=== PATIENT | female | born 1970 | race Caucasian/White ===

== ENCOUNTER → 2017-01-31 | Outpatient (CLI) | payer OTHER | LOC: HEART 5 08:00 | DX: M79.609 Pain in unspecified limb (principal); I73.9 Peripheral vascular disease, unspecified; R60.9 Edema, unspecified; I10 Essential (primary) hypertension; F17.290 Nicotine dependence, other tobacco product, uncomplicated ==

== ENCOUNTER → 2017-02-17 | Outpatient (CLI) | payer OTHER | LOC: HEART 5 08:30 | DX: R07.9 Chest pain, unspecified (principal) | CPT/HCPCS: 93306 ==

== ENCOUNTER → 2017-04-08 | Outpatient (CLI) | payer OTHER | LOC: HEART 5 14:02 | DX: R06.02 Shortness of breath (principal) | CPT/HCPCS: 94010 ==

== ENCOUNTER → 2017-04-11 | Outpatient (CLI) | payer OTHER | LOC: MAMO 09:53 | DX: Z12.31 Encounter for screening mammogram for malignant neoplasm of breast (principal) | CPT/HCPCS: G0202 ==

== ENCOUNTER → 2017-04-15 | Outpatient (CLI) | payer OTHER | LOC: US 12:20 | DX: N63 Unspecified lump in breast (principal); R92.8 Other abnormal and inconclusive findings on diagnostic imaging of breast | CPT/HCPCS: 76641-LT ==

== ENCOUNTER 2020-12-09 14:10 | Emergency (ER) | payer MEDICARE, OTHER ==
[~2020-12-09 14:10] MED LIST: AUGMENTIN 875-1 EACH PO; CYCLOBENZAPRINE10 MG PO; FIORINAL 50-321 EACH PO; IBUPROFEN600 MG PO; IBUPROFEN800 MG PO; K-DUR TAB 20 M20 MEQ PO; LODINE CAP 300300 MG PO; NAPROSYN500 MG PO; NORFLEX 100 MG100 MG PO; PREDNISONE20 MG PO; PROVENTIL HFA6.7 GM INH; TORADOL 10 MG T10 MG PO; Voltaren Gel 1 % TOP
[2020-12-09 16:45] LABS: RED BLOOD COUNT 4.92 M/UL (4.00-5.10); WHITE BLOOD COUNT 7.7 K/UL (4.5-11.0)
[2020-12-09 17:10] LABS: BUN/CREATININE RATIO 15 (0-10)
== END 2020-12-09 20:49 | disposition home or self-care (01) ==
LOC: ER1 14:10
PROVIDERS: Emergency Medicine
DX: E87.6 Hypokalemia (principal); R19.7 Diarrhea, unspecified; Z20.822 Contact with and (suspected) exposure to COVID-19; F17.200 Nicotine dependence, unspecified, uncomplicated
CPT/HCPCS: 71045; 80053; 81001; 82550; 82553; 83605; 83690; 83874; 84484; 85025; 93005; 96374; 96375; 99284; J2270; J2405; J7030; U0002

== ENCOUNTER → 2021-01-15 | Outpatient (CLI) | payer MEDICARE | LOC: KOH-I 12:07 | DX: Z09 Encounter for follow-up examination after completed treatment for conditions other than malignant neoplasm (principal); Z87.442 Personal history of urinary calculi | CPT/HCPCS: 74018 ==

== ENCOUNTER → 2021-04-16 | Outpatient (CLI) | payer MEDICARE | LOC: KOH-I 15:17 | DX: M51.27 Other intervertebral disc displacement, lumbosacral region (principal) | CPT/HCPCS: 72070 ==

== ENCOUNTER → 2021-06-13 | Outpatient (CLI) | payer MEDICARE ==
[~2021-06-13] MED LIST changes: +BENTYL 20MG TAB20 MG PO; +ZOFRAN4 MG PO
== END ==
LOC: LAB 09:02
DX: M25.50 Pain in unspecified joint (principal); R76.8 Other specified abnormal immunological findings in serum; D89.9 Disorder involving the immune mechanism, unspecified; M19.90 Unspecified osteoarthritis, unspecified site; M85.832 Other specified disorders of bone density and structure, left forearm; M85.831 Other specified disorders of bone density and structure, right forearm
CPT/HCPCS: 36415; 85652; 86140; 86200

== ENCOUNTER 2021-07-14 20:25 | Emergency (ER) | payer MEDICARE ==
[~2021-07-14 20:25] MED LIST changes: -BENTYL 20MG TAB20 MG PO; -ZOFRAN4 MG PO
== END 2021-07-14 21:30 | disposition left against medical advice (07) ==
LOC: ER1 20:25
DX: Z53.21 Procedure and treatment not carried out due to patient leaving prior to being seen by health care provider (principal)

== ENCOUNTER → 2021-07-26 | Outpatient (CLI) | payer MEDICARE ==
[~2021-07-26] MED LIST changes: +BENTYL 20MG TAB20 MG PO; +ZOFRAN4 MG PO
== END ==
LOC: RAD 12:04
DX: N20.0 Calculus of kidney (principal)
CPT/HCPCS: 74018

== ENCOUNTER 2021-07-29 18:14 | Emergency (ER) | payer MEDICARE ==
[~2021-07-29 18:14] MED LIST changes: -BENTYL 20MG TAB20 MG PO; -ZOFRAN4 MG PO
[2021-07-29 19:10] LABS: HEMOGLOBIN 15.2 gm/dl (12.3-15.3); RED BLOOD COUNT 4.96 M/UL (4.00-5.10); WHITE BLOOD COUNT 8.5 K/UL (4.5-11.0)
[2021-07-29 19:28] LABS: BUN/CREATININE RATIO 19 (0-10)
[2021-07-29] MEDS ORDERED: AUGMENTIN 875-1 EACH PO (22:52)
[2021-07-29] MEDS ORDERED: ZOFRAN4 MG PO (22:52)
[2021-07-29] MEDS ORDERED: BENTYL 20MG TAB20 MG PO (22:52)
== END 2021-07-29 23:01 | disposition home or self-care (01) ==
LOC: ER1 18:14
PROVIDERS: Physician Assistant Medical
DX: G43.909 Migraine, unspecified, not intractable, without status migrainosus (principal); R10.9 Unspecified abdominal pain; R11.2 Nausea with vomiting, unspecified; Z90.49 Acquired absence of other specified parts of digestive tract; F17.200 Nicotine dependence, unspecified, uncomplicated; Z79.899 Other long term (current) drug therapy; Z87.442 Personal history of urinary calculi; Z20.822 Contact with and (suspected) exposure to COVID-19
CPT/HCPCS: 71045; 80053; 81001; 82150; 83690; 84484; 85025; 96374; 96375; 99284; C9113; J1200; J1885; J2270; J2405; J2765; J7030; Q9967; U0002

== ENCOUNTER 2021-08-01 15:56 | Emergency (ER) | payer MEDICARE ==
[~2021-08-01 15:56] MED LIST changes: +BENTYL 20MG TAB20 MG PO; +ZOFRAN4 MG PO
[2021-08-01 17:03] LABS: HEMOGLOBIN 14.7 gm/dl (12.3-15.3); RED BLOOD COUNT 4.87 M/UL (4.00-5.10); WHITE BLOOD COUNT 7.7 K/UL (4.5-11.0)
== END 2021-08-01 23:45 | disposition home or self-care (01) ==
LOC: ER1 15:56
PROVIDERS: Physician Assistant Medical
DX: R51.9 Headache, unspecified (principal); R10.84 Generalized abdominal pain; F17.210 Nicotine dependence, cigarettes, uncomplicated
CPT/HCPCS: 36415; 70450; 80053; 81001; 82150; 82550; 82553; 83605; 83690; 83874; 84484; 85025; 96372; 96374; 96375; 99284; J1100; J1200; J1885; J2270; J2405; J2550; J7030

== ENCOUNTER → 2021-08-16 | Outpatient (CLI) | payer MEDICARE, OTHER | LOC: NM 09:39 | DX: R11.0 Nausea (principal); R93.2 Abnormal findings on diagnostic imaging of liver and biliary tract | CPT/HCPCS: 78264; A9541 ==

== ENCOUNTER → 2021-09-20 | Outpatient (CLI) | payer MEDICARE, OTHER, SELFPAY | LOC: RAD 15:29 | DX: R06.00 Dyspnea, unspecified (principal) | CPT/HCPCS: 71046 ==

== ENCOUNTER 2021-10-09 11:23 | Emergency (ER) | payer MEDICARE, OTHER, SELFPAY ==
[2021-10-09 11:55] LABS: RED BLOOD COUNT 4.56 M/UL (4.00-5.10); WHITE BLOOD COUNT 6.7 K/UL (4.5-11.0)
[2021-10-09 12:25] LABS: BUN/CREATININE RATIO 18 (0-10)
[2021-10-09] MEDS ORDERED: MOBIC15 MG PO (16:24)
[2021-10-09] MEDS ORDERED: CYCLOBENZAPRINE5 MG PO (16:24)
== END 2021-10-09 16:30 | disposition home or self-care (01) ==
LOC: ER1 11:23
PROVIDERS: Physician Assistant
DX: R07.89 Other chest pain (principal); E78.5 Hyperlipidemia, unspecified; F17.200 Nicotine dependence, unspecified, uncomplicated; I10 Essential (primary) hypertension; R51.9 Headache, unspecified; R68.83 Chills (without fever); Z20.822 Contact with and (suspected) exposure to COVID-19; K21.9 Gastro-esophageal reflux disease without esophagitis; Z90.710 Acquired absence of both cervix and uterus
CPT/HCPCS: 0240U; 70450; 71045; 80053; 81001; 82550; 82553; 83874; 84484; 85025; 87086; 93005; 96374; 99285; J1885

== ENCOUNTER 2021-10-23 10:52 | Emergency (ER) | payer MEDICARE, OTHER, SELFPAY ==
[~2021-10-23 10:52] MED LIST changes: +CYCLOBENZAPRINE5 MG PO; +MOBIC15 MG PO
[2021-10-23 11:46] LABS: HEMOGLOBIN 13.3 gm/dl (12.3-15.3); RED BLOOD COUNT 4.32 M/UL (4.00-5.10); WHITE BLOOD COUNT 6.8 K/UL (4.5-11.0)
[2021-10-23 12:21] LABS: BUN/CREATININE RATIO 11 (0-10)
== END 2021-10-23 14:35 | disposition home or self-care (01) ==
LOC: ER1 10:52
PROVIDERS: Family Medicine
DX: R07.89 Other chest pain (principal); M54.6 Pain in thoracic spine; G89.29 Other chronic pain; F11.20 Opioid dependence, uncomplicated; R51.9 Headache, unspecified; R42 Dizziness and giddiness; F17.200 Nicotine dependence, unspecified, uncomplicated
CPT/HCPCS: 71045; 80048; 82550; 82553; 83874; 84484; 85025; 85379; 93005; 99285

== ENCOUNTER → 2021-10-24 | Outpatient (CLI) | payer MEDICARE, OTHER, SELFPAY | LOC: CT 08:37 | DX: M47.814 Spondylosis without myelopathy or radiculopathy, thoracic region (principal); M25.78 Osteophyte, vertebrae | CPT/HCPCS: 72130; Q9967 ==

== ENCOUNTER 2021-12-26 21:47 | Emergency (ER) | payer MEDICARE | END 2021-12-26 22:22 | disposition left against medical advice (07) | LOC: ER1 21:47 | DX: Z53.21 Procedure and treatment not carried out due to patient leaving prior to being seen by health care provider (principal) ==

== ENCOUNTER 2021-12-27 20:21 | Emergency (ER) | payer MEDICARE | END 2021-12-28 00:35 | disposition home or self-care (01) | LOC: ER1 20:21 | DX: S30.0XXA Contusion of lower back and pelvis, initial encounter (principal); W19.XXXA Unspecified fall, initial encounter; Y92.009 Unspecified place in unspecified non-institutional (private) residence as the place of occurrence of the external cause; F17.200 Nicotine dependence, unspecified, uncomplicated | CPT/HCPCS: 72100; 96372; 99283; J1885 ==

== ENCOUNTER → 2021-12-31 | Outpatient (CLI) | payer MEDICARE | LOC: KOH-I 10:18 | DX: M47.816 Spondylosis without myelopathy or radiculopathy, lumbar region (principal); M51.34 Other intervertebral disc degeneration, thoracic region | CPT/HCPCS: 72070 ==

== ENCOUNTER 2022-03-18 11:59 | Emergency (ER) | payer MEDICARE ==
[2022-03-18 12:42] LABS: HEMOGLOBIN 12.5 gm/dl (12.3-15.3); RED BLOOD COUNT 4.29 M/UL (4.00-5.10); WHITE BLOOD COUNT 6.9 K/UL (4.5-11.0)
[2022-03-18 13:05] LABS: BUN/CREATININE RATIO 8 (0-10)
[2022-03-18] MEDS ORDERED: PROMETHAZINE12.5 M1 PO (15:07)
== END 2022-03-18 15:15 | disposition home or self-care (01) ==
LOC: ER1 11:59
DX: E78.5 Hyperlipidemia, unspecified (principal); F17.210 Nicotine dependence, cigarettes, uncomplicated; R10.813 Right lower quadrant abdominal tenderness; R11.0 Nausea; R10.9 Unspecified abdominal pain
CPT/HCPCS: 80053; 81001; 82550; 82553; 83690; 84484; 85025; 96374; 96375; 99284; J0780; J1100; J1200; Q9967

== ENCOUNTER 2022-05-05 19:55 | Emergency (ER) | payer MEDICARE ==
[~2022-05-05 19:55] MED LIST changes: +PROMETHAZINE12.5 M1 PO
[2022-05-05 20:47] LABS: HEMOGLOBIN 13.5 gm/dl (12.3-15.3); RED BLOOD COUNT 4.54 M/UL (4.00-5.10); WHITE BLOOD COUNT 10.9 K/UL (4.5-11.0)
[2022-05-05 21:18] LABS: BUN/CREATININE RATIO 8 (0-10)
[2022-05-05] MEDS ORDERED: K-TAB ER20 MEQ PO (21:44)
== END 2022-05-05 23:10 | disposition home or self-care (01) ==
LOC: ER1 19:55
PROVIDERS: Physician Assistant
DX: R51.9 Headache, unspecified (principal); E87.6 Hypokalemia; F17.210 Nicotine dependence, cigarettes, uncomplicated
CPT/HCPCS: 70450; 80053; 81001; 85025; 87086; 96374; 96375; 99284; J1200; J1885; J2270; J2765

== ENCOUNTER → 2022-05-06 | Outpatient (CLI) | payer MEDICARE ==
[~2022-05-06] MED LIST changes: +K-TAB ER20 MEQ PO
== END ==
LOC: KOH-I 14:18
DX: M72.2 Plantar fascial fibromatosis (principal); M79.671 Pain in right foot; G57.61 Lesion of plantar nerve, right lower limb; Q66.71 Congenital pes cavus, right foot; M76.71 Peroneal tendinitis, right leg; M19.071 Primary osteoarthritis, right ankle and foot
CPT/HCPCS: 73718

== ENCOUNTER → 2022-06-18 | Outpatient (CLI) | payer MEDICARE | LOC: EMI 06-14 10:30 → MRI 08:30 | DX: M96.1 Postlaminectomy syndrome, not elsewhere classified (principal); M51.27 Other intervertebral disc displacement, lumbosacral region; M51.34 Other intervertebral disc degeneration, thoracic region; M48.04 Spinal stenosis, thoracic region | CPT/HCPCS: 72146; 72148 ==

== ENCOUNTER 2022-06-24 22:10 | Emergency (ER) | payer MEDICARE | END 2022-06-25 04:04 | disposition home or self-care (01) | LOC: ER1 22:10 | DX: S03.2XXA Dislocation of tooth, initial encounter (principal); S01.511A Laceration without foreign body of lip, initial encounter; I10 Essential (primary) hypertension; W01.10XA Fall on same level from slipping, tripping and stumbling with subsequent striking against unspecified object, initial encounter; Y92.009 Unspecified place in unspecified non-institutional (private) residence as the place of occurrence of the external cause | CPT/HCPCS: 40650; 70110; 71045; 72040; 73564; 93005; 99283 ==

== ENCOUNTER → 2022-07-09 | Outpatient (CLI) | payer MEDICARE | LOC: EXRD 10:50 | DX: S29.9XXA Unspecified injury of thorax, initial encounter (principal) | CPT/HCPCS: 71111; 73130 ==

== ENCOUNTER → 2022-07-23 | Emergency (ER) | payer MEDICARE ==
[~2022-07-23] MED LIST changes: +AMOXICILLIN500 M1 PO
== END | disposition home or self-care (01) ==
LOC: ER1 09:09
DX: U07.1 COVID-19 (principal); J02.9 Acute pharyngitis, unspecified; H66.92 Otitis media, unspecified, left ear; I10 Essential (primary) hypertension; Z90.49 Acquired absence of other specified parts of digestive tract; Z90.710 Acquired absence of both cervix and uterus
CPT/HCPCS: 87081; 87880; 99283; U0002